=== PATIENT | female | born 1960 | race Two or more races ===

== ENCOUNTER 2017-04-03 12:29 | Inpatient (IN) | payer OTHER ==
[~2017-04-03] VITALS: Ht 154.9 cm; Wt 85.7 kg
[2017-04-03] VITALS (10 sets, daily range): BP systolic 74–140; BP diastolic 39–84
[~2017-04-03 12:29] MED LIST: CEFACLOR250 MG PO; MACRODANTIN100 M1 ORAL; PHENAZOPYRIDIN100 MG ORAL
[2017-04-03] MEDS ORDERED: Sodium Chloride 500ML 500 ML IV ONE ×2 (13:02→19:45)
--- NOTE | 2017-04-03 13:14 | Emergency Room Report ---
History of Present Illness General Chief Complaint: Abdominal Pain Source: Patient (PEDRO CONTEH M.D.) Present Illness HPI 56-year-old female presents ED complaining of abdominal pain. She states she's having pain since December. Was seen by PMD and was prescribed antibiotic for UTI. States that the pain is not resolved. Pain is sharp, 10 out of 10, diffuse. Denies fevers chills. Denies chest pain or shortness of breath. Denies nausea or vomiting. Denies flank pain. No other aggravating relieving factors. Denies any other associated symptoms (PEDRO CONTEH M.D.) Allergies: Coded Allergies: PIPERACILLIN (Verified Allergy, Unknown, 04/03/17) TAZOBACTAM (Verified Allergy, Unknown, 04/03/17) Patient History Past Medical History: none Past Surgical History: none Pertinent Family History: none Social History: Denies: smoking, alcohol use, drug use Now: No Immunizations: UTD Reviewed Nursing Documentation: PMH: Agreed, PSxH: Agreed (PEDRO CONTEH M.D.) Nursing Documentation-PMH Past Medical History: No History, Except For Hx Cancer: No Hx Gastrointestinal Problems: No Hx Neurological Problems: No (PEDRO CONTEH M.D.) Review of Systems All Other Systems: negative except mentioned in HPI (PEDRO CONTEH M.D.) Physical Exam Vital Signs Date Time Temp Pulse Resp B/P (MAP) Pulse Ox O2 Delivery O2 Flow Rate FiO2 04/03/17 12:40 97.7 91 18 115/80 99 04/03/17 12:58 Room Air Sp02 EP Interpretation: reviewed, normal General Appearance: no apparent distress, alert, GCS 15, non-toxic, obese Head: normocephalic, atraumatic Eyes: bilateral eye normal inspection, bilateral eye PERRL ENT: hearing grossly normal, normal pharynx, no angioedema, normal voice Neck: full range of motion, supple/symm/no masses Respiratory: chest non-tender, lungs clear, normal breath sounds, speaking full sentences Cardiovascular #1: regular rate, rhythm, no edema Cardiovascular #2: 2+ carotid (R), 2+ carotid (L), 2+ radial (R), 2+ radial (L) , 2+ dorsalis pedis (R), 2+ dorsalis pedis (L) Gastrointestinal: normal bowel sounds, soft, non-distended, no guarding, no rebound, tenderness Rectal: deferred Genitourinary: normal inspection, no CVA tenderness Musculoskeletal: back normal, gait/station normal, normal range of motion, non- tender Neurologic: alert, oriented x3, responsive, motor strength/tone normal, sensory intact, speech normal Psychiatric: judgement/insight normal, memory normal, mood/affect normal, no suicidal/homicidal ideation Reflexes: 3+ bicep (R), 3+ bicep (L), 3+ tricep (R), 3+ tricep (L), 3+ knee (R) , 3+ knee (L) Skin: normal color, no rash, warm/dry, well hydrated Lymphatic: no adenopathy (PEDRO CONTEH M.D.) Medical Decision Making Diagnostic Impression: Primary Impression: Diverticulitis Additional Impression: Anaphylactic reaction ER Course The patient was worsened by Dr. Conteh the pending CT. The patient noted to have persistent abdominal pain. The patient was found to have diverticulitis on CT imaging. There is no evident abscess. The patient was given IV Zosyn. She was subsequently noted to be having what appeared to be seizure activity. She was given Ativan IV . She is noted to have evidence of hypotension as well as swelling to her face and lips consistent with anaphylaxis. The patient given IV hydrocortisone as well as IV Benadryl and IM epinephrine. She was noted to have some improvement after IV fluids in her hypotension. Dr. Chun Dan contacted for inpatient observation and further management of diverticulitis Labs Test 04/03/17 13:05 White Blood Count 10.4 K/UL (4.8-10.8) Red Blood Count 4.23 M/UL (4.20-5.40) Hemoglobin 12.4 G/DL (12.0-16.0) Hematocrit 39.3 % (37.0-47.0) Mean Corpuscular Volume 93 FL (80-99) Mean Corpuscular Hemoglobin 29.3 PG (27.0-31.0) Mean Corpuscular Hemoglobin Concent 31.5 G/DL (32.0-36.0) Red Cell Distribution Width 12.7 % (11.6-14.8) Platelet Count 342 K/UL (150-450) Mean Platelet Volume 7.4 FL (6.5-10.1) Neutrophils (%) (Auto) 66.5 % (45.0-75.0) Lymphocytes (%) (Auto) 23.0 % (20.0-45.0) Monocytes (%) (Auto) 8.9 % (1.0-10.0) Eosinophils (%) (Auto) 0.9 % (0.0-3.0) Basophils (%) (Auto) 0.6 % (0.0-2.0) Urine Color Pale yellow Urine Appearance Clear Urine pH 5 (4.5-8.0) Urine Specific Hunter 1.010 (1.005-1.035) Urine Protein Negative (NEGATIVE) Urine Glucose (UA) Negative (NEGATIVE) Urine Ketones Negative (NEGATIVE) Urine Occult Blood 1+ (NEGATIVE) Urine Nitrite Negative (NEGATIVE) Urine Bilirubin Negative (NEGATIVE) Urine Urobilinogen Normal MG/DL (0.0-1.0) Urine Leukocyte Esterase Negative (NEGATIVE) Urine RBC 0-2 /HPF (0 - 2) Urine WBC 0-2 /HPF (0 - 2) Urine Squamous Epithelial Cells Few /LPF (NONE/OCC) Urine Bacteria Occasional /HPF (NONE) Sodium Level 140 MMOL/L (136-145) Potassium Level 4.4 MMOL/L (3.5-5.1) Chloride Level 103 MMOL/L (98-107) Carbon Dioxide Level 31 MMOL/L (21-32) Anion Gap 6 mmol/L (5-15) Blood Urea Nitrogen 12 mg/dL (7-18) Creatinine 0.9 MG/DL (0.55-1.30) Estimat Glomerular Filtration Rate > 60 mL/min (>60) Glucose Level 131 MG/DL (74-106) Calcium Level 9.3 MG/DL (8.5-10.1) Total Bilirubin 0.2 MG/DL (0.2-1.0) Aspartate Amino Transf (AST/SGOT) 23 U/L (15-37) Alanine Aminotransferase (ALT/SGPT) 17 U/L (12-78) Alkaline Phosphatase 72 U/L (46-116) Total Protein 8.3 G/DL (6.4-8.2) Albumin 3.1 G/DL (3.4-5.0) Globulin 5.2 g/dL Albumin/Globulin Ratio 0.6 (1.0-2.7) Lipase 142 U/L (73-393) (José Miguel Sotomayor) Last Vital Signs Date Time Temp Pulse Resp B/P (MAP) Pulse Ox O2 Delivery O2 Flow Rate FiO2 04/03/17 12:58 98.4 90 16 140/72 100 Room Air (PEDRO CONTEH M.D.) Status: unchanged (José Miguel Sotomayor) Disposition: PLACE IN OBSERVATION Condition: Serious Referrals: [facility],REFERRING (PCP) PEDRO CONTEH M.D. Apr 03, 2017 13:13 José Miguel Sotomayor Apr 04, 2017 01:12
[2017-04-03] MEDS ORDERED: Morphine Sulfate 4mg/ml Inj IVP ONE (13:15)
[2017-04-03 13:26] LABS: BASOPHILS % (AUTO) 0.6 % (0.0-2.0); EOSINOPHILS % (AUTO) 0.9 % (0.0-3.0); MEAN CORPUSCULAR HEMOGLOBIN 29.3 PG (27.0-31.0); MEAN CORPUSCULAR HGB CONC 31.5 G/DL (32.0-36.0); MEAN CORPUSCULAR VOLUME 93 FL (80-99); MEAN PLATELET VOLUME 7.4 FL (6.5-10.1); MONOCYTES % (AUTO) 8.9 % (1.0-10.0); NEUTROPHILS % (AUTO) 66.5 % (45.0-75.0); PLATELET COUNT 342 K/UL (150-450); RED BLOOD COUNT 4.23 M/UL (4.20-5.40); RED CELL DISTRIBUTION WIDTH 12.7 % (11.6-14.8); WHITE BLOOD COUNT 10.4 K/UL (4.8-10.8)
[2017-04-03 13:30] LABS: ANION GAP 6 mmol/L (5-15); APPEARANCE,URINE CLEAR; CALCIUM 9.3 MG/DL (8.5-10.1); CARBON DIOXIDE 31 MMOL/L (21-32); CHLORIDE 103 MMOL/L (98-107); CREATININE 0.9 MG/DL (0.55-1.30); GLOMERULAR FILTRATION RATE > 60 mL/min (>60); KETONES,URINE NEGATIVE (NEGATIVE); LEUKOCYTE ESTERASE ,URINE NEGATIVE (NEGATIVE); NITRITE,URINE NEGATIVE (NEGATIVE); PH,URINE 5 (4.5-8.0); POTASSIUM 4.4 MMOL/L (3.5-5.1); PROTEIN,URINE NEGATIVE (NEGATIVE); SODIUM 140 MMOL/L (136-145); UROBILINOGEN,URINE NORMAL MG/DL (0.0-1.0)
[2017-04-03 13:35] LABS: ALANINE AMINOTRANSFERASE 17 U/L (12-78); ALBUMIN/GLOBULIN RATIO 0.6 (1.0-2.7); ASPARTATE AMINO TRANSFERASE 23 U/L (15-37); LIPASE 142 U/L (73-393); TOTAL PROTEIN 8.3 G/DL (6.4-8.2)
[2017-04-03 13:43] LABS: BACTERIA,URINE OCCASIONAL /HPF; RBC,URINE 0-2 /HPF (0 - 2); SQUAMOUS EPITHELIAL CELL,UR FEW /LPF (NONE/OCC); WBC,URINE 0-2 /HPF (0 - 2)
--- NOTE | 2017-04-03 15:07 | Diagnostic Imaging Report ---
Clinical Indication: Abdominal pain Technique: No oral contrast utilized, per emergency room physician request IV administration nonionic contrast. Venous phase spiral acquisition obtained through the abdomen and pelvis. Multiplanar reconstructions were generated. Total dose length product 956 mGycm. CTDIvol(s) 18 mGy. Dose reduction achieved using automated exposure control Comparison: None Findings: There is colonic diverticulosis. There is marked wall thickening of the proximal sigmoid colon. There is infiltration of the surrounding pericolonic fat. No focal fluid collection or extraluminal gas collection is demonstrated. The appendix is normal. There are mildly prominent fluid-filled small bowel loops in the left lower quadrant. No free or loculated intraperitoneal air or fluid is evident. The distal esophagus, stomach, duodenum are unremarkable. The gallbladder is unremarkable. The extrahepatic bile ducts are unremarkable. The central intrahepatic ducts are slightly ectatic. The liver, pancreas, spleen, adrenals, kidneys are unremarkable. No retroperitoneal or mesenteric mass or adenopathy. No pelvic mass or adenopathy. The uterus is not demonstrated, presumed surgically absent. The bladder is unremarkable. The included lung bases demonstrate minimal posterior dependent atelectasis, are otherwise unremarkable. The heart is borderline enlarged. The bones are unremarkable except for minimal degenerative proliferative changes of the thoracolumbar junction. Impression: Findings consistent with acute sigmoid diverticulitis. Slightly ectatic central hepatic ducts, without evidence of downstream obstructive lesion, significance uncertain. Correlation with liver function tests is advised Surgically absent uterus Borderline cardiomegaly Findings discussed by phone with Dr. Sotomayor in the emergency room at the time of interpretation The CT scanner at [facility] is accredited by the [employer] and the scans are performed using protocols designed to limit radiation exposure to as low as reasonably achievable to attain images of sufficient resolution adequate for diagnostic evaluation.
[2017-04-03] MEDS ORDERED: Piperacillin/Tazobactam 3.375 GM in NS 55 ML IVPB ONE (15:45)
[2017-04-03] MEDS ORDERED: Zosyn 3.375gm inj ONE (16:00)
[2017-04-03] MEDS ORDERED: LORazepam Inj 2mg/ml 1ml ONE (16:28)
[2017-04-03] MEDS ORDERED: LORazepam Inj 2mg/ml 1ml IV ONE (16:30)
[2017-04-03] MEDS ORDERED: Hydrocortisone 100mg Inj ONE (17:13)
[2017-04-03] MEDS ORDERED: Hydrocortisone 100mg Inj IV ONE (17:15)
[2017-04-03] MEDS ORDERED: EPINEPHrine 1mg/1ml Amp IM ONE ×2 (17:15→19:45)
[2017-04-03] MEDS ORDERED: Solu-MEDROL 125mg Inj IVP ONE (17:15)
[2017-04-03] MEDS ORDERED: EPINEPHrine 1mg/1ml Amp ONE (17:16)
[2017-04-03] MEDS ORDERED: DiphenhydrAMINE 50mg/ml Inj IVP ONE (17:45)
[2017-04-03] MEDS ORDERED: IBANDRONATE SO150 MG PO (21:11)
[2017-04-03] MEDS ORDERED: Sodium Chloride 500ML 550 ML IV SCH (23:00)
[2017-04-04] MEDS ORDERED: Sodium Chloride 500ML 550 ML IV ONE ×2 (01:30→03:30)
[2017-04-04] MEDS ORDERED: Sodium Chloride 500ML 550 ML IV SCH (03:30)
[2017-04-04] MEDS: Sodium Chloride 500ML 550 ML IV SCH ×2 (05:30→11:00)
[2017-04-04 07:30] LABS: BASOPHILS % (AUTO) 0.4 % (0.0-2.0); LYMPHOCYTES % (AUTO) 14.3 % (20.0-45.0); MEAN CORPUSCULAR HGB CONC 32.3 G/DL (32.0-36.0); MEAN CORPUSCULAR VOLUME 93 FL (80-99); MEAN PLATELET VOLUME 6.9 FL (6.5-10.1); MONOCYTES % (AUTO) 4.4 % (1.0-10.0); PLATELET COUNT 329 K/UL (150-450); RED CELL DISTRIBUTION WIDTH 12.4 % (11.6-14.8); WHITE BLOOD COUNT 16.6 K/UL (4.8-10.8)
[2017-04-04 08:12] VITALS: BP 117/77
--- NOTE | 2017-04-04 08:45 | Diagnostic Imaging Report ---
Indication: Altered mental status Technique: Continuous helical CT scanning of the head was performed utilizing automated exposure control without intravenous contrast material. Axial and coronal reconstructions were obtained. Comparison: None available CT dose: Total DLP 1379 mGycm; CTDI vol 70.5 mGy Findings: There is no acute intracranial hemorrhage, mass effect , midline shift or cortical edema. Size and configuration of the ventricular system is within normal limits. The posterior fossa, fourth ventricle, sellar and suprasellar regions are grossly unremarkable. There is no depressed calvarial fracture. No focal soft tissue swelling/scalp hematoma identified. There is mucosal thickening in the bilateral sphenoid sinuses with some bubbly secretions on the right. There is mastoid effusion on the left. Impression: No evidence of acute intracranial hemorrhage, mass effect or cortical edema. MRI may be obtained for more sensitive evaluation as clinically indicated. Left-sided mastoid effusion and bilateral sphenoid sinus disease. Correlate clinically. This corresponds with the preliminary report. The CT scanner at [facility] is accredited by the [employer] and the scans are performed using protocols designed to limit radiation exposure to as low as reasonably achievable to attain images of sufficient resolution adequate for diagnostic evaluation.
[2017-04-04] MEDS ORDERED: Heparin 5000 units/ml inj SUBQ SCH (09:00)
[2017-04-04] MEDS ORDERED: Morphine Sulfate 2mg/ml Inj IVP PRN (10:30)
--- NOTE | 2017-04-04 11:25 | Cardiology Report ---
APPROVED REPORT EKG Measurement Heart [id number] Sinus tachycardia Nonspecific ST abnormality Abnormal ECG
[2017-04-04 11:56] VITALS: BP 116/72
--- NOTE | 2017-04-04 15:39 | GI Initial Consult Note ---
History of Present Illness General Date patient seen: Apr 04, 2017 Time patient seen: 15:36 Reason for Hospitalization: Abdominal Pain Referring physician: LINUS MOELLER Reason for Consultation: DIVERTICULITIS Present Illness HPI 56-year-old female presents ED complaining of abdominal pain. She states she's having pain since December. Was seen by PMD and was prescribed antibiotic for UTI. States that the pain is not resolved. Pain is sharp, 10 out of 10, diffuse. Denies fevers chills. Denies chest pain or shortness of breath. Denies nausea or vomiting. Denies flank pain. No other aggravating relieving factors. Denies any other associated symptoms. GI consulted for diverticulitis in the sigmoid region as shown on recent CT AP. HPI as noted above. Pt seen on floor, awake A&Ox4 NAD with no active s/sx of N/V/D. C/o of abdominal pain 10/05 vs 02/04 yesterday. Patient stated she recently had colonoscopy with the past 6 months, noted for diverticulosis and internal hemorrhoids. She presents today with abdominal pain, leukocytosis and anemia. Home Meds Reported Medications Ibandronate Sodium (IBANDRONATE SODIUM) 150 Mg Tablet, 150 MG PO QMONTH 04/03/17 Discontinued Reported Medications Phenazopyridine Hcl* (PYRIDIUM*) 100 Mg Tablet, 100 MG ORAL THREE TIMES A DAY, TAB 03/07/15 Nitrofurantoin Monohyd/M-Cryst (Nitrofurantoin Moore-Mcr 100 mg) 100 Mg Cap, 100 MG ORAL FOUR TIMES A DAY, CAP 03/07/15 Cefaclor (CEFACLOR) 250 Mg Capsule, 250 MG PO, CAP 03/07/15 Med list reviewed/reconciled: Yes Allergies: Coded Allergies: PIPERACILLIN (Verified Allergy, Severe, Anaphylaxis, 04/04/17) anaphylaxis in ER within 20 mins of receiving dose TAZOBACTAM (Verified Allergy, Severe, Anaphylaxis, 04/04/17) Patient History History Provided By: Patient, Family Member, Medical Record PMH Narrative Past Medical History: none Past Surgical History: none Pertinent Family History: none Social History: Denies: smoking, alcohol use, drug use Now: No Immunizations: UTD Nursing Documentation-PMH Past Medical History: No History, Except For Hx Cancer: No Hx Gastrointestinal Problems: No Hx Neurological Problems: No Social History: Denies: smoking, alcohol use, drug use, other Review of Systems All Other Systems: negative except mentioned in HPI Physical Exam Vital Signs Date Time Temp Pulse Resp B/P (MAP) Pulse Ox O2 Delivery O2 Flow Rate FiO2 04/03/17 12:40 97.7 91 18 115/80 99 04/03/17 12:58 Room Air 04/03/17 16:50 2.0 04/03/17 17:20 97 Sp02 EP Interpretation: reviewed, normal Labs Laboratory Tests Test 04/04/17 06:30 White Blood Count 16.6 K/UL (4.8-10.8) #H Red Blood Count 3.90 M/UL (4.20-5.40) L Hemoglobin 11.7 G/DL (12.0-16.0) L Hematocrit 36.3 % (37.0-47.0) L Mean Corpuscular Volume 93 FL (80-99) Mean Corpuscular Hemoglobin 30.0 PG (27.0-31.0) Mean Corpuscular Hemoglobin Concent 32.3 G/DL (32.0-36.0) Red Cell Distribution Width 12.4 % (11.6-14.8) Platelet Count 329 K/UL (150-450) Mean Platelet Volume 6.9 FL (6.5-10.1) Neutrophils (%) (Auto) 81.0 % (45.0-75.0) H Lymphocytes (%) (Auto) 14.3 % (20.0-45.0) L Monocytes (%) (Auto) 4.4 % (1.0-10.0) Eosinophils (%) (Auto) 0.0 % (0.0-3.0) Basophils (%) (Auto) 0.4 % (0.0-2.0) Pro-B-Type Natriuretic Peptide 102 pg/mL (0-125) Thyroid Stimulating Hormone (TSH) 0.440 uiU/mL (0.358-3.740) General Appearance: well appearing, no apparent distress, alert Head: normocephalic EENT: PERRL/EOMI, normal ENT inspection Neck: supple Respiratory: normal breath sounds, no respiratory distress Cardiovascular: normal rate Gastrointestinal: normal inspection, non tender, soft, normal bowel sounds, non -distended Rectal: deferred Genitourinary: no CVA tenderness Musculoskeletal: normal inspection, back normal Neurologic: normal inspection, alert, oriented x3, responsive Psychiatric: normal inspection, judgement/insight normal, memory normal Skin: normal inspection, normal color, no rash, warm/dry, palpation normal, well hydrated Lymphatic: normal inspection, no adenopathy Current Medications Current Medications Medications (Trade) Dose Ordered Sig/Kayleigh Route PRN Reason Start Time Stop Time Status Last Admin Dose Admin Heparin Sodium (Porcine) (Heparin 5000 units/ml) 5,000 units EVERY 12 HOURS SUBQ 04/04/17 09:00 05/04/17 08:59 04/04/17 10:01 Levofloxacin 100 ml @ 100 mls/hr Q24H IVPB 04/03/17 23:00 04/10/17 22:59 04/04/17 06:17 Metronidazole 100 ml @ 100 mls/hr Q8HR IVPB 04/04/17 06:00 04/11/17 05:59 04/04/17 13:46 Morphine Sulfate (Morphine Sulfate) 2 mg Q6HR PRN IVP For Pain 04/04/17 10:30 04/11/17 10:29 04/04/17 12:29 Sodium Chloride 550 ml @ 100 mls/hr Q5H30M IV 04/04/17 05:30 05/04/17 05:29 04/04/17 11:00 GI: Plan Problems: (1) Leukocytosis (2) Diverticulitis (3) Anaphylactic reaction Plan CT AP reviewed >> acute sigmoid diverticulitis. bowel rest >> NPO, adv as tolerated IV hydration >> LR or NS IV Abx >> transition to PO Cipro + Flagyl x 10 days after dc pain mgmt zofran prn ppi anemia work up OB stool r/o GI bleed monitor H&H, prn transfusions fu labs Pt will require colonoscopy x 2 months after dc date. Discussed with Dr. Deleon. Thank you for this patient referral, we will follow. Alicia Dumont N.P. Apr 04, 2017 15:39
[2017-04-04 15:44] VITALS: BP 118/73
[2017-04-04] MEDS ORDERED: NS 500ML ONE (16:29)
--- NOTE | 2017-04-04 17:00 | History and Physical Report ---
DATE OF ADMISSION: 04/03/2017 HISTORY OF PRESENT ILLNESS: This is a 56-year-old female, who came to the hospital with lower abdominal pain. She has been having this pain for a month and a half. She has been given some antibiotics for in the past and the pain resolved. She came emergency room, she was seen and worked up. She was found to have diverticulitis. She received a dose of Zosyn with resultant hypotension, seizure, and anaphylactic type reaction. She subsequently received steroids and Benadryl and discontinued the Zosyn. She is at this time feeling significantly better now. PAST MEDICAL HISTORY: None. PAST SURGICAL HISTORY: None. SOCIAL HISTORY: Denies alcohol or tobacco usage. FAMILY HISTORY: Noncontributory. REVIEW OF SYSTEMS: The patient denies any headaches, hematemesis, melena, or hematochezia. PHYSICAL EXAMINATION: GENERAL: Reveals an obese female. VITAL SIGNS: Blood Pressure 115/80, heart rate 94, respiratory 18, and she is afebrile. HEENT: Unremarkable. CHEST: Clear breath sounds. ABDOMEN: Soft. There is mild right lower quadrant discomfort. EXTREMITIES: There is no edema. LABORATORY DATA: Lab testing shows white count 16.6 this morning, yesterday was 7.4. Remainder of laboratories are unremarkable. Hemoglobin 11.7. Chemistries unremarkable. Glucose 131. Urinalysis shows 1+ blood. Imaging studies obtained yesterday, abdomen and pelvis CT showed colonic diverticulosis and marked wall thickening of the proximal sigmoid colon with infiltration of the surrounding pericolonic fat, suspicious for diverticulitis of sigmoid. The patient also underwent a CT of her head, which was negative. IMPRESSION: 1. Acute sigmoid diverticulitis. 2. Probable allergic reaction to Zosyn. DISCUSSION: We will admit to the hospital. IV fluids. Start Flagyl and Levaquin. Clear liquid diet. Consult Gastroenterology. Check labs in the morning. We will follow carefully. Chun Dan M.D. DR: Tyrell JOB#: [id number] CC:
--- NOTE | 2017-04-07 08:24 | Discharge Summary ---
Discharge Summary Hospital Course Date of Admission Apr 03, 2017 at 21:15 Date of Discharge Apr 04, 2017 at 16:30 Admitting Diagnosis DIVETICULITIES HPI Kimberley Tafoya is a 56 year old female who was admitted on Apr 03, 2017 at 21:15 for Diverticulitis Hospital Course dc summary #[id number] Discharge Condition Upon Discharge: stable Discharge Disposition Patient was discharged to [facility] (insurance contracted hospital) Discharge Diagnoses: Discharge Instructions Discharge Instructions Special Instructions I have been assigned to complete a D/C Summary on this account. I was not involved in the patient management Liza Brambila NP (Vanchtein) Apr 07, 2017 08:24
--- NOTE | 2017-04-08 04:00 | Discharge Summary 2 SIG ---
DATE OF ADMISSION: 04/03/2017 DATE OF DISCHARGE: 04/04/2017 REASON FOR ADMISSION: 56-year-old female, presented to emergency room with complaint of abdominal pain. Upon presentation , the patient had no leukocytosis. Lipase was within normal limits. LFTs were within normal limits. CT of the abdomen and pelvis revealed acute sigmoid diverticulitis, but no evidence of abscess. The patient was afebrile. The patient was started on Zosyn, however, after Zosyn was started, noted anaphylactic type reaction. The patient experienced a seizure like activity. Ativan IV was administered. She also noted to have evidence of hypotension as well as the swelling of the face and lips consistent with anaphylaxis. The patient subsequently received IV hydrocortisone, IV Benadryl, and IM epinephrine. She had improvement in the blood pressure after IV fluids. No respiratory compromise. The patient was admitted for further management. ADMITTING DIAGNOSES: Diverticulitis Anaphylactic reaction. HOSPITAL STAY: The patient was admitted. The patient was started on the IV fluids. Antibiotics were changed to Flagyl and Levaquin. GI evaluation was requested. GI recommended NPO status with bowel rest. Pain management was addressed. Antiemetic provided as needed. Hemoglobin and hematocrit were monitored. Stool for occult blood was ordered. Per GI specialist, the patient will need a colonoscopy in two months after discharge from the hospital. On the second day noted leukocytosis, WBC-16.6. Electrolytes were stable. Due to the insurance issues, the patient required to be transferred to contracted facility. Subsequently the patient was transferred to [facility]. FINAL DIAGNOSES: 1. Acute sigmoid diverticulitis. 2. Probable allergic reaction to Zosyn. 3. Anaphylactic reaction. 4. Leukocytosis. DISCHARGE MEDICATIONS: List of the medication was sent to admitting facility. DISCHARGE INSTRUCTIONS: The patient was discharged to [facility], [facility]. Follow up with medical doctor at the facility. Chun Dan M.D. I have been assigned to dictate discharge summary on this account and I was not involved in the patient's management. Liza Brambila N.P. (Vanchtein) DR: Cat JOB#: [id number] CC: JANUSZ
--- NOTE | 2017-04-08 04:00 | Progress Note ---
DATE: 04/04/2017 CARDIOLOGY PROGRESS NOTE Late entry, 04/04/2017. SUBJECTIVE: The patient had an anaphylactoid type reaction yesterday in the emergency room following an intravenous dose of Zosyn. She has not had any subsequent hemodynamic instability. Blood pressure parameters remaining stable. Heart rates improved. No shortness of breath on reduction in swelling. OBJECTIVE: VITAL SIGNS: Blood pressure 118/73, pulse 84, respirations 18, and afebrile. HEENT: Oropharynx clear. No stridor. NECK: Supple. CARDIAC: Regular. Normal S1 and S2. No murmur. LUNGS: Clear. ABDOMEN: rubber press tender in the lower quadrants. EXTREMITIES: Without edema. LABORATORY DATA: Notable for pro-natriuretic peptide of 100. TSH 0.4. White count 16.6 and hemoglobin 11.7. IMPRESSION: 1. Status post anaphylactoid reaction to penicillin type drugs, now hemodynamically stable. 2. Sinus tachycardia, resolved. 3. Improving facial edema. 4. Persistent acute diverticulitis with leukocytosis. PLAN: 1. Antimicrobials. 2. NPO. 3. IV hydration. 4. Continue Benadryl as needed. 5. DVT and stress ulcer prophylaxis. 6. Stable for transfer to contracted facility. Sameer Oliver M.D. DR: Ander JOB#: [id number] CC:
--- NOTE | 2017-04-08 04:00 | Consultation ---
DATE OF CONSULTATION: 04/03/2017 CARDIOLOGY CONSULTATION CONSULTING PHYSICIAN: Sameer Oliver M.D. REQUESTING PHYSICIAN: Chun Dan M.D. REASON FOR CONSULTATION: Anaphylactoid type reaction. HISTORY OF PRESENT ILLNESS: This is a 56-year-old female, presented to the emergency room with abdominal pain. Imaging studies confirmed diverticulitis. She had already been on outpatient antibiotics for a presumed urinary infection. The patient was given IV antibiotics in the emergency room and apparently had a seizure followed by lip and facial swelling and hypotension. She was given IV fluids as well as intravenous diphenhydramine and epinephrine intramuscularly. Improvement was noted in her hemodynamics and hospitalization initiated. PAST MEDICAL HISTORY: Unremarkable. SOCIAL HISTORY: Negative for smoking or alcohol use. FAMILY HISTORY: Not remarkable. REVIEW OF SYSTEMS: Negative for prior cardiovascular disease, diabetes, thyroid disorder, seizures, or strokes. No prior history of diverticulitis. PHYSICAL EXAMINATION: GENERAL: Moderately obese female, presently in mild distress, but no acute respiratory distress. VITAL SIGNS: Blood pressure is 104/68, pulse rate 121, respiratory rate 18, and afebrile. NECK: Supple. HEENT: Mild facial edema. LUNGS: Clear. No wheezing. No stridor. CARDIAC: Regular rhythm. Rapid rate. Normal S1 and S2. No murmur. ABDOMEN: Slightly tender in the lower quadrants. EXTREMITIES: There is no edema. NEUROLOGIC: Nonfocal. LABORATORY AND DIAGNOSTIC DATA: White count is 10 and hemoglobin 12. Potassium 4.4, albumin 3.1, BUN 12, creatinine 0.9, and glucose 130. Pro-natriuretic peptide is pending. EKG, sinus tachycardia with nonspecific ST-abnormality. IMPRESSION: Acute sigmoid diverticulitis with associated abdominal pain, probable anaphylactoid type of allergic reaction to Zosyn. PLAN: 1. IV fluids. 2. Steroids. 3. Monitor respiratory parameters. 4. Liquid diet. 5. Antibiotics that did not include penicillins or cephalosporins. 6. DVT prophylaxis. Sameer Oliver M.D. DR: Shea JOB#: [id number] CC:
== END 2017-04-04 16:30 | disposition short-term general hospital (02) | DRG 392 ==
LOC: EMR 12:59 → EDBEDREQ 17:50 → 2E 17:51 → EDBEDREQSVC 19:36 → EDBEDREQ 19:36 → OBSVTOIN 21:15
DX: K57.32 Diverticulitis of large intestine without perforation or abscess without bleeding (principal); T88.6XXA Anaphylactic reaction due to adverse effect of correct drug or medicament properly administered, initial encounter; T36.0X5A Adverse effect of penicillins, initial encounter; Y84.8 Other medical procedures as the cause of abnormal reaction of the patient, or of later complication, without mention of misadventure at the time of the procedure; Z88.1 Allergy status to other antibiotic agents
CPT/HCPCS: 36415; 70450; 74177; 80053; 81003; 83690; 83880; 84443; 85025; 93005; 99285